=== PATIENT | female | born 1965 | race Caucasian/White ===

== ENCOUNTER 2017-11-16 08:25 | Outpatient (CLI) | payer BC ==
--- NOTE | 2017-11-16 10:39 | CT ---
CONTRAST ENHANCED CT IMAGES SOFT TISSUE NECK: HISTORY: Patient with palpable left neck mass. FINDINGS: Contrast-enhanced CT images of soft tissue neck obtained. The patient received 99 mL of Isovue 370 I V. Images demonstrate asymmetric enlargement of the sternocleidomastoid muscle compared to the right. T his is the area which has been palpated by the patient and is adjacent to the marker. No evidence of soft tissue neck masses or lesions seen. No evidence of parotid or carotid space mass is seen. The submandibular glands are unremarkable. No evidence of lymphadenopathy seen. IMPRESSION: Left neck area of soft tissue density represents the left sternocleidomastoid muscle. POS: [id number]
== END 2017-11-16 08:26 | disposition home or self-care (01) ==
LOC: SCSCT 08:25
PROVIDERS: ATTEND Specialist
DX: R22.1 Localized swelling, mass and lump, neck (principal)
CPT/HCPCS: 70491